=== PATIENT | male | born 1955 | race Caucasian/White ===

== ENCOUNTER 2018-04-29 11:49 | Day surgery (SDC) | payer BC ==
[2018-04-28 08:41] VITALS: BMI 27.2
[~2018-04-29 11:49] MED LIST: DEXAMETHASONE SOD PHOSPHATE 10 MG/ML 1 ML VIAL IV ONE; HYDROmorphone 0.5 MG/0.5 ML SYRINGE IVP PRN; LIDOCAINE 1% 20 ML VIAL (10MG/ML) FOR IV START INTRADERMA PRN; MIDAZOLAM 2 MG/2 ML VIAL IV PRN; ONDANSETRON 4 MG/2 ML VIAL IVP ONE; Pre Op ABX Message 1 EACH MISC MISCELLANE ONE; SCOPOLAMINE 1.5MG/72HR PATCH TRANSDERM ONE
[2018-04-29 12:25] VITALS: TEMP 98.1
[2018-04-29] MEDS: LACTATED RINGERS 1,000 ML IV SCH ×2 (12:38→13:01)
[2018-04-29] MEDS ORDERED: fentaNYL (PF) 50 MCG/ML 2 ML AMP ONE (12:59)
[2018-04-29] MEDS ORDERED: PROPOFOL 10 MG/ML 20 ML VIAL IV ONE (12:59)
[2018-04-29] MEDS ORDERED: MIDAZOLAM 2 MG/2 ML VIAL ONE (12:59)
[2018-04-29] MEDS ORDERED: SODIUM CHLORIDE 0.9% 50 ML with ceFAZolin 2,000 MG IV ONE ×2 (13:05)
[2018-04-29] MEDS ORDERED: BUPIVACAINE (PF) 0.25% 30 ML VIAL SQ ONE (13:17)
[2018-04-29 14:10] VITALS: RESP 16
--- NOTE | 2018-04-29 14:10 | P.OP ---
Date of Procedure: 04/29/18 Preoperative Diagnosis: Hallux limitus left foot Postoperative Diagnosis: Same Procedure(s) Performed: Cheliectomy dorsal aspect first metatarsal phalangeal joint left foot Anesthesia: MAC Surgeon: Mode Foster Indications for Procedure: Pain with use of a closed shoe gear Operative Findings: Arthritisdegenerative joint disease first metatarsal phalangeal joint left foot Description of Procedure: On the date of surgery the patient was taken to the operating room in good condition placed on the operating table in a supine position where an IV was started and adequate IV anesthetic agents were utilized. Anesthesia was then further supplemented with approximately 10 mL of 0.25% plain Marcaine given in a [place] block to the first ray complex of the patient's foot. At this time the ankle tourniquet was inflated to approximately 275 mmHg. Her graft patient's left foot were then prepped and draped in the usual aseptic Over heavy web roll padding an ankle tourniquet had been placed above the patient's malleoli. At this time attention was directed to the dorsal aspect of the first metatarsal phalangeal joint of the patient's left foot where an approximately 6 cm dorsolinear incision was made the incision was deepened via sharp dissection down through the level of the subcu cutaneous tissue layers all neurovascular structures encountered were identified isolated and were retracted and any bleeding vessels were clamped electrocauterized. Line dissection was then carried deep to Periosteal Structures These Were Incised with the Original Skin Incision and Underscored and Retracted from the Underlying Bone the Hyperostosis Present on the Dorsal Aspect of the Distal Part of the First Metatarsal Head and the Proximal Most Aspect of the Base of the Proximal Phalanx Was Then Removed Utilizing an Oscillating Bone Saw. Throughout the Procedure Copious Amounts Sterile Saline Solution Was Used To Irrigate the Surgical Site. Periosteal Structures Were Then Coaptated and Maintained Utilizing 2-0 Vicryl Simple Interrupted Suture Subcutaneous Tissue Layers Were Then Coaptated and Maintained Utilizing 3-0 Vicryl Simple Interrupted Suture the Skin Edges Were Then Coaptated and Maintained Utilizing 4-0 Nylon Simple Interrupted Suture. Adaptic Kerlix Fluffs Four-Inch Conformer and 4 Inch Coban Was Used To Form a Compression Dressing and the Ankle Tourniquet to the Patient's Right Ankle Was Deflated Adequate Hemostatic Return Was Seen in All Digits the Patient's Right Foot Is Tolerated the Surgery and Anesthesia Well Was Taken Recovery Room in Good Postoperative Condition Sign Mode Foster DPM
[2018-04-29 14:37] VITALS: BP 138/78; PULSE 55
== END 2018-04-29 14:58 | disposition home or self-care (01) ==
LOC: OR 11:49
PROVIDERS: ATTEND Podiatrist Foot & Ankle Surgery
DX: M20.5X2 Other deformities of toe(s) (acquired), left foot (principal); I10 Essential (primary) hypertension; K21.9 Gastro-esophageal reflux disease without esophagitis; L71.9 Rosacea, unspecified; Z79.899 Other long term (current) drug therapy; Z91.09 Other allergy status, other than to drugs and biological substances
CPT/HCPCS: 88304; 88311; 28289; J2250; J1100; J2405; J3010; J0690; J2704